=== PATIENT | female | born 1965 | race Caucasian/White ===

== ENCOUNTER 2020-07-03 13:38 | Emergency (ER) | payer SELFPAY ==
[~2020-07-03] VITALS: Ht 160 cm; Wt 81.5 kg
[2020-07-03 13:43] VITALS: BP 152/86
[2020-07-03] MEDS ORDERED: SPIR50TA4 PO (14:11)
[2020-07-03] MEDS ORDERED: ATEN50TA41 PO (14:11)
== END 2020-07-03 14:13 | disposition home or self-care (01) ==
LOC: ED 13:56
DX: I10 Essential (primary) hypertension (principal); Z76.0 Encounter for issue of repeat prescription
CPT/HCPCS: 99281